=== PATIENT | female | born 2000 | race Two or more races ===

== ENCOUNTER 2020-06-20 23:30 | Emergency (ER) | payer MEDICAID ==
[~2020-06-20] VITALS: Ht 160 cm; Wt 55.8 kg
[2020-06-20 23:33] VITALS: BP 128/83
[2020-06-21] MEDS ORDERED: ketorolac tromethamine 15mg/ml inj. IM ONE (01:10)
== END 2020-06-21 01:31 | disposition home or self-care (01) ==
LOC: ER 23:31
DX: R51.9 Headache, unspecified (principal); H53.8 Other visual disturbances
CPT/HCPCS: 96372; 99283; J1885